=== PATIENT | female | born 1955 | race Caucasian/White ===

== ENCOUNTER 2016-12-11 19:22 | Emergency (ER) | payer OTHER ==
[~2016-12-11] VITALS: Ht 160 cm; Wt 53.0 kg
[2016-12-11 19:33] VITALS: BP 128/84; PULSE 92; RESP 20; TEMP 97.7; O2SAT 98
--- NOTE | 2016-12-11 19:49 | PD ---
HPI Chief Complaint: Headache Time Seen by Provider: 19:38 Travel History International Travel<30 days: No Contact w/Intl Traveler<30days: No Traveled to known affect area: No History of Present Illness HPI 61yo F with PMH of CVA and residual left sided weakness/numbness and right eye visual defect presents to the ED with c/o headache that started about an hour ago. States her head felt "funny" and she fell onto the couch. Headache is located in mid forehead and mild. Denies any new weakness or numbness, fever, neck pain, new visual changes, n/v, abdominal pain. Pt has +AOB but states she only had 2 beers today. PFSH Past Medical History Cancer: Yes High Cholesterol: Yes COPD: Yes Coronary Artery Disease: Yes Diminished Hearing: No Glaucoma: Yes Tetanus Vaccination: Unknown ?: Not Tubal Ligation: Yes Past Surgical History Cholecystectomy: Yes Mastectomy: Yes (left breast) Other Surgery: Yes (back surgery) Social History Alcohol Use: Yes Tobacco Use: Yes Substance Use: No Allergies-Medications (Allergen,Severity, Reaction): Coded Allergies: Codeine (Verified Allergy, Unknown, 12/11/16) Reported Meds & Prescriptions Reported Meds & Active Scripts Active Reported Multi Vitamin Daily (Multiple Vitamin) 1 Tab Tab 1 Tab PO DAILY Folic Acid 800 Mcg Tab 800 Mcg PO DAILY Plavix (Clopidogrel Bisulfate) 75 Mg Tab 75 Mg PO DAILY Atorvastatin (Atorvastatin Calcium) 40 Mg Tab 40 Mg PO HS Aspirin 81 Mg Chew 81 Mg CHEW DAILY Review of Systems Except as stated in HPI: all other systems reviewed are Neg Physical Exam Narrative GENERAL: 61yo F not in distress. SKIN: Focused skin assessment warm/dry. HEAD: Atraumatic. Normocephalic. EYES: Pupils equal and round at 4mm bilaterally. No scleral icterus. No injection or drainage. ENT: No nasal bleeding or discharge. Mucous membranes pink and moist. NECK: Trachea midline. No JVD. No nuchal rigidity. CARDIOVASCULAR: Regular rate and rhythm. No murmur appreciated. RESPIRATORY: No accessory muscle use. Clear to auscultation. Breath sounds equal bilaterally. GASTROINTESTINAL: Abdomen soft, non-tender, nondistended. MUSCULOSKELETAL: No obvious deformities. No clubbing. No cyanosis. No edema. NEUROLOGICAL: Awake and alert. Left upper and lower extremity muscle strength is 4/5 compared to 5/5 in right side which is not new. Left face, arm and leg also has more decreased sensation than right. Left facial droop which is not new. PSYCHIATRIC: Appropriate mood and affect; insight and judgment normal. Data Data Last Documented VS Vital Signs Date Time Temp Pulse Resp B/P Pulse Ox O2 Delivery O2 Flow Rate FiO2 12/11/16 19:36 20 Room Air 100 12/11/16 19:33 97.7 92 128/[address] Brain W/O Iv Contrast(Rout) (12/11/16 ) Complete Blood Count With Diff (12/11/16 19:38) Basic Metabolic Panel (Bmp) (12/11/16 19:38) Prothrombin Time / Inr (Pt) (12/11/16 19:38) Act Partial Throm Time (Ptt) (12/11/16 19:38) Alcohol (Ethanol) (12/11/16 19:56) Labs Laboratory Tests Test 12/11/16 19:50 White Blood Count 7.2 TH/MM3 Red Blood Count 4.21 MIL/MM3 Hemoglobin 14.0 GM/DL Hematocrit 41.5 % Mean Corpuscular Volume 98.4 FL Mean Corpuscular Hemoglobin 33.1 PG Mean Corpuscular Hemoglobin 33.7 % Concent Red Cell Distribution Width 13.7 % Platelet Count 256 TH/MM3 Mean Platelet Volume 8.1 FL Neutrophils (%) (Auto) 44.9 % Lymphocytes (%) (Auto) 45.4 % Monocytes (%) (Auto) 7.9 % Eosinophils (%) (Auto) 1.4 % Basophils (%) (Auto) 0.4 % Neutrophils # (Auto) 3.2 TH/MM3 Lymphocytes # (Auto) 3.3 TH/MM3 Monocytes # (Auto) 0.6 TH/MM3 Eosinophils # (Auto) 0.1 TH/MM3 Basophils # (Auto) 0.0 TH/MM3 CBC Comment DIFF FINAL Differential Comment Prothrombin Time 11.6 SEC Prothromb Time International 1.0 RATIO Ratio Activated Partial 28.2 SEC Thromboplast Time Sodium Level 137 MEQ/L Potassium Level 3.7 MEQ/L Chloride Level 108 MEQ/L Carbon Dioxide Level 20.5 MEQ/L Anion Gap 9 MEQ/L Blood Urea Nitrogen 4 MG/DL Creatinine 0.57 MG/DL Estimat Glomerular Filtration 108 ML/MIN Rate Random Glucose 98 MG/DL Calcium Level 7.5 MG/DL Ethyl Alcohol Level 223 MG/DL [facility] Medical Decision Making Medical Screen Exam Complete: Yes Emergency Medical Condition: Yes Differential Diagnosis SAH vs. Migraine headache vs. alcohol intoxication Narrative Course 61yo F with PMH of CVA and left sided weakness and numbness here with c/o headache that started an hour prior to arrival. Pt is not in distress and non toxic appearing. No signs of trauma. No new neurologic deficits. Since onset of headache is only an hour, CT brain is 100% sensitive for SAH although clinical suspicion for this is low. CT brain showed remote parietal infarct. No acute intracranial abnormalities. Labs reviewed, no leukocytosis. Blood alcohol 223. Pt reevaluated at bedside and states her headache has resolved and she does not want any pain medication at this time and just wants to go home. Pt's son is with her and can accompany her home. Diagnosis Primary Impression: Headache Qualified Code: R51 - Acute nonintractable headache, unspecified headache type Patient Instructions: General Instructions Departure Forms: Tests/Procedures Additional Instructions: Please follow up with your PMD in 3-7 days. Return to the ED if symptoms worsen. Med/Other Pt SpecificInfo: Prescription(s) given Scripts Acetaminophen (Tylenol)325 Mg Wab405 Mg PO Q6H PRN (PAIN SCALE 1 TO 4) #20 TAB Ref 0 Prov:Yael Velasco DO 12/11/16 Disposition: 01 DISCHARGE HOME Condition: Stable Yael Velasco DO Dec 11, 2016 19:49
[2016-12-11] MEDS ORDERED: FOLI800T PO (20:01)
[2016-12-11] MEDS ORDERED: ATOR40TA16 PO (20:01)
[2016-12-11] MEDS ORDERED: MULT1TAB46 PO (20:01)
[2016-12-11] MEDS ORDERED: PANT40TA3 PO (20:01)
[2016-12-11] MEDS ORDERED: ASPI81CH CHEW (20:01)
[2016-12-11] MEDS ORDERED: PLAV75TA29 PO (20:01)
--- NOTE | 2016-12-11 20:23 | RADRPT ---
EXAM DATE/TIME: 12/11/2016 20:11 [facility] COMPARISON: No previous studies available for comparison. INDICATIONS : Trauma, dizziness with fall. ETOH. RADIATION DOSE: 56.35 CTDIvol (mGy) MEDICAL HISTORY : Chronic obstructive pulmonary disease. Coronary artery disease. Breast cancer. SURGICAL HISTORY : Cholecystectomy. Tubal ligation.Mastectomy, left.Back surgery. ENCOUNTER: Initial ACUITY: 1 day PAIN SCALE: 0/10 LOCATION: cranial TECHNIQUE: Multiple contiguous axial images were obtained of the head. Using automated exposure control and adj ustment of the mA and/or kV according to patient size, radiation dose was kept as low as reasonably a chievable to obtain optimal diagnostic quality images. DICOM format image data is available electro nically for review and comparison. FINDINGS: CEREBRUM: Encephalomalacia right parietal lobe from previous infarction. The ventricles are normal for age. No evidence of midline shift, mass lesion, hemorrhage or acute infarction. No extra-axial fluid collec tions are seen. POSTERIOR FOSSA: The cerebellum and brainstem are intact. The 4th ventricle is midline. The cerebellopontine angle i s unremarkable. EXTRACRANIAL: The visualized portion of the orbits is intact. SKULL: The calvaria is intact. No evidence of skull fracture. CONCLUSION: 1. Remote right parietal infarct. 2. No acute intracranial abnormalities. Ricardo Rodriguez MD on December 11, 2016 at 20:20 Board Certified Radiologist. This report was verified electronically.
[2016-12-11 20:28] LABS: AUTOMATED NEUTROPHIL # 3.2 TH/MM3 (1.8-7.7); BASOPHIL % 0.4 % (0.0-2.0); EOSINOPHIL # 0.1 TH/MM3 (0-0.4); EOSINOPHIL % 1.4 % (0.0-4.0); HEMATOCRIT 41.5 % (35.0-46.0); HEMO FLAGS DIFF FINAL; LYMPH % 45.4 % (9.0-44.0); LYMPHOCYTE # 3.3 TH/MM3 (1.0-4.8); MEAN CELL VOLUME 98.4 FL (80.0-100.0); MEAN CORPUSCULAR HEMOGLOBIN 33.1 PG (27.0-34.0); MEAN CORPUSCULAR HGB CONC 33.7 % (32.0-36.0); MONO % 7.9 % (0.0-8.0); NEUT % 44.9 % (16.0-70.0); PLATELET COUNT 256 TH/MM3 (150-450); RED BLOOD COUNT 4.21 MIL/MM3 (4.00-5.30); RED CELL DISTRIBUTION WIDTH 13.7 % (11.6-17.2); WHITE BLOOD COUNT 7.2 TH/MM3 (4.0-11.0)
[2016-12-11 20:37] LABS: APTT (PATIENT) 28.2 SEC (24.3-30.1); PROTHROMBIN TIME - PATIENT 11.6 SEC (9.8-11.6)
[2016-12-11 20:52] LABS: BICARBONATE 20.5 MEQ/L (21.0-32.0)
[2016-12-11 21:07] LABS: POTASSIUM 3.7 MEQ/L (3.5-5.1)
[2016-12-11] MEDS ORDERED: TYLE325T PO (21:45)
== END 2016-12-11 22:02 | disposition home or self-care (01) ==
LOC: NEPE 19:22
DX: R51 Headache (principal); R20.0 Anesthesia of skin; I69.354 Hemiplegia and hemiparesis following cerebral infarction affecting left non-dominant side; I25.10 Atherosclerotic heart disease of native coronary artery without angina pectoris; Z72.0 Tobacco use; Z79.899 Other long term (current) drug therapy
CPT/HCPCS: 70450; 80048; 80307; 85025; 85610; 85730

== ENCOUNTER 2017-08-09 20:41 | Emergency (ER) | payer OTHER ==
[~2017-08-09] VITALS: Ht 157.5 cm; Wt 58.0 kg
[~2017-08-09 20:41] MED LIST: ASPI-516 CHEW; ATOR40TA16 PO; FOLI800T PO; MULT1TAB46 PO; PANT40TA3 PO; PLAV75TA29 PO; TYLE325T PO
[2017-08-09 21:02] VITALS: BP 163/91; PULSE 94; RESP 16; TEMP 97.8; O2SAT 95
[2017-08-09 22:13] VITALS: BP_SYST 164; BP_DIAS 131; BP_DIAS 91; PULSE 97; RESP 18; O2SAT 97
[2017-08-09] MEDS ORDERED: ONDANSETRON HCL 4 MG/2 ML VIAL IV PUSH ONE (22:15)
[2017-08-09] MEDS ORDERED: SODIUM CHLOR 0.9% 1000 ML INJ 1,000 ML IV ONE (22:15)
[2017-08-09] MEDS ORDERED: MORPHINE SULFATE 2 MG/ML INJ IV PUSH ONE (22:15)
--- NOTE | 2017-08-09 22:22 | PD ---
HPI Chief Complaint: Headache Time Seen by Provider: 22:11 Travel History International Travel<30 days: No Contact w/Intl Traveler<30days: No Traveled to known affect area: No History of Present Illness HPI 62-year-old female that presents to the ED for evaluation of headache. Patient came here by was for evaluation of this. Per patient she's had a history of TIAs and CVAs in the past and last one she had left her weak and with numbness to the left arm and leg. This is chronic for her. Per patient's his 5:00 she' s been having a headache and nausea and vomiting. She states that the headache feels like a sharp pain on the forehead. No injury or trauma. Takes no blood thinners. She states that she's been throwing up because of the pain. Denies any chest pain or shortness of breath. She states that she has not taken anything for this. Per patient the pain is not improving which is what prompted her to call the ambulance. She denies any blurry vision or double vision but states that she did have initially. Per patient the pain is 8 out of 10. She also tells me that she drank 6 "small" beers. Has moderate to codeine. Other medical issues at this time. Se does have chronic neck and back problems. PFSH Past Medical History Cancer: Yes High Cholesterol: Yes COPD: Yes Coronary Artery Disease: Yes Diminished Hearing: No Glaucoma: Yes Tubal Ligation: Yes Past Surgical History Cholecystectomy: Yes Mastectomy: Yes (left breast) Other Surgery: Yes (back surgery) Social History Alcohol Use: Yes Tobacco Use: Yes Substance Use: No Allergies-Medications (Allergen,Severity, Reaction): Coded Allergies: codeine (Unverified Allergy, Unknown, 08/09/17) Reported Meds & Prescriptions Reported Meds & Active Scripts Active Reported Multi Vitamin Daily (Multiple Vitamin) 1 Tab Tab 1 Tab PO DAILY Aspirin 81 Mg Chew 81 Mg CHEW DAILY Review of Systems Except as stated in HPI: all other systems reviewed are Neg Physical Exam Narrative GENERAL: SKIN: Warm and dry. HEAD: Atraumatic. Normocephalic. EYES: Pupils equal and round 4 mms reactive to light and accommodation. No scleral icterus. No injection or drainage. ENT: No nasal bleeding or discharge. Mucous membranes pink and moist. Tongue is midline. No uvula deviation. NECK: Trachea midline. No JVD. CARDIOVASCULAR: Regular rate and rhythm. No murmurs, S3, S4. RESPIRATORY: No accessory muscle use. Clear to auscultation. Breath sounds equal bilaterally. GASTROINTESTINAL: Abdomen soft, non-tender, nondistended. Hepatic and splenic margins not palpable. MUSCULOSKELETAL: Extremities without clubbing, cyanosis, or edema. No obvious deformities. Full range of motion of the upper and lower extremity bilaterally. 2+ pulses bilaterally. No lumbar, thoracic, cervical spine tenderness to palpation. NEUROLOGICAL: Awake and alert. No obvious cranial nerve deficits. Motor grossly within normal limits. Five out of 5 muscle strength in the arms and legs. Normal speech. PSYCHIATRIC: Appropriate mood and affect; insight and judgment normal. Data Data Last Documented VS Vital Signs Date Time Temp Pulse Resp B/P (MAP) Pulse Ox O2 Delivery O2 Flow Rate FiO2 08/09/17 22:13 97 18 164/91 (115) 97 Room Air 08/09/17 21:02 97.8 Orders Orders Complete Blood Count With Diff (08/09/17 22:15) Comprehensive Metabolic Panel (08/09/17 22:15) Prothrombin Time / Inr (Pt) (08/09/17 22:15) Act Partial Throm Time (Ptt) (08/09/17 22:15) Lipase (08/09/17 22:15) Magnesium (Mg) (08/09/17 22:15) Ct Brain W/O Iv Contrast(Rout) (08/09/17 22:15) Iv Access Insert/Monitor (08/09/17 22:15) Ecg Monitoring (08/09/17 22:15) Alcohol (Ethanol) (08/09/17 22:15) Ondansetron Inj (Zofran Inj) (08/09/17 22:15) Morphine Inj (Morphine Inj) (08/09/17 22:15) Sodium Chlor 0.9% 1000 Ml Inj (Ns 1000 M (08/09/17 22:15) MDM Medical Decision Making Medical Screen Exam Complete: Yes Emergency Medical Condition: Yes Medical Record Reviewed: Yes Differential Diagnosis Tension headache versus cephalgia versus chronic headache versus dehydration versus normal exam versus CVA Narrative Course 62-year-old female that presents to the ED for evaluation of headache. Patient was properly examined and was found to have signs and symptoms consistent appears to be headache. She is neurovascularly intact at this time. Unclear as to the reason of the headache but will do CT and labs. Patient does admit to alcohol and has been throwing up. Possible migraine. Labs and imaging ordered. Patient was started on IV fluids and IV medications. Case will be signed out to my attending pending disposition and plan. Mac Montes Aug 09, 2017 22:22
[2017-08-09 22:38] LABS: AUTOMATED NEUTROPHIL # 7.1 TH/MM3 (1.8-7.7); BASOPHIL # 0.1 TH/MM3 (0-0.2); BASOPHIL % 0.5 % (0.0-2.0); EOSINOPHIL # 0.1 TH/MM3 (0-0.4); EOSINOPHIL % 0.8 % (0.0-4.0); HEMATOCRIT 52.1 % (35.0-46.0); HEMOGLOBIN 17.9 GM/DL (11.6-15.3); LYMPHOCYTE # 2.2 TH/MM3 (1.0-4.8); MEAN CELL VOLUME 99.1 FL (80.0-100.0); MEAN CORPUSCULAR HEMOGLOBIN 34.1 PG (27.0-34.0); MEAN CORPUSCULAR HGB CONC 34.4 % (32.0-36.0); MEAN PLATELET VOLUME 7.7 FL (7.0-11.0); MONO % 5.3 % (0.0-8.0); MONOCYTE # 0.5 TH/MM3 (0-0.9); NEUT % 71.4 % (16.0-70.0); PLATELET COUNT 256 TH/MM3 (150-450); RED BLOOD COUNT 5.25 MIL/MM3 (4.00-5.30); RED CELL DISTRIBUTION WIDTH 12.4 % (11.6-17.2); WHITE BLOOD COUNT 9.9 TH/MM3 (4.0-11.0)
[2017-08-09 22:47] LABS: INTERNATIONAL NORMALIZED RATIO 1.1 RATIO; PROTHROMBIN TIME - PATIENT 11.2 SEC (9.8-11.6)
--- NOTE | 2017-08-09 22:58 | RADRPT ---
EXAM DATE/TIME: 08/09/2017 22:31 [facility] COMPARISON: No previous studies available for comparison. INDICATIONS : Patient complains of headache. RADIATION DOSE: 33.37 CTDIvol (mGy) MEDICAL HISTORY : Cerebrovascular disease. Chronic obstructive pulmonary disease. Cardiovascular disease SURGICAL HISTORY : Mastectomy, left. Cholecystectomy. ENCOUNTER: Initial ACUITY: 1 day PAIN SCALE: 5/10 LOCATION: cranial TECHNIQUE: Multiple contiguous axial images were obtained of the head. Using automated exposure control and adj ustment of the mA and/or kV according to patient size, radiation dose was kept as low as reasonably a chievable to obtain optimal diagnostic quality images. DICOM format image data is available electro nically for review and comparison. FINDINGS: There is a remote right MCA distribution infarct similar to November 2016. No mass effect or midline shif t. Undersurface. No abnormal extra-axial fluid collections. No acute bony abnormalities. Mucosal thic kening right ethmoid air cells. CONCLUSION: 1. Remote right MCA distribution infarct. No acute intracranial abnormalities. Mikhail Tinajero MD on August 09, 2017 at 22:54 Board Certified Radiologist. This report was verified electronically.
[2017-08-09 22:59] LABS: ALT (GPT) 19 U/L (10-53)
[2017-08-09 23:01] LABS: ALKALINE PHOSPHATASE 98 U/L (45-117); TOTAL BILIRUBIN ADULT 0.5 MG/DL (0.2-1.0); TOTAL PROTEIN 7.7 GM/DL (6.4-8.2)
[2017-08-09 23:15] LABS: ALBUMIN 3.8 GM/DL (3.4-5.0); AST (GOT) 17 U/L (15-37); BICARBONATE 23.7 MEQ/L (21.0-32.0); BLOOD UREA NITROGEN 4 MG/DL (7-18); CHLORIDE 102 MEQ/L (98-107); CREATININE 0.68 MG/DL (0.50-1.00); GLOMERULAR FILTRATION RATE 88 ML/MIN (>89); GLUCOSE,RANDOM 88 MG/DL (74-106); MAGNESIUM 1.9 MG/DL (1.5-2.5); SODIUM (NA) 137 MEQ/L (136-145)
[2017-08-09] MEDS ORDERED: THIAMINE INJ 100 MG in SODIUM CHLORIDE 0.9% INJ 100 ML IV ONE (23:45)
[2017-08-09 23:46] VITALS: BP 110/68; PULSE 90; RESP 15; O2SAT 91
--- NOTE | 2017-08-10 00:14 | PD ---
Physical Exam Narrative General: The patient is a well-developed well-nourished female in no acute distress. Head and Neck exam: Head is normocephalic atraumatic. Eyes: EOMI, pupils are equal round and reactive to light. Nose: Midline septum with pink mucous membranes Mouth: Dentition unremarkable. Moist mucus membranes. Posterior oropharynx is not erythematous. No tonsillar hypertrophy. Uvula midline. Airway patent. Neck: No palpable lymphadenopathy. No nuchal rigidity. No thyromegaly. Negative Brudzinski, negative Kernig sign. Cardiovascular: Regular rate and rhythm without murmurs, gallops, or rubs. Lungs: Clear to auscultation bilaterally. No wheezes, rhonchi, or rales. Abdomen: Soft, without tenderness to palpation in all 4 quadrants of the abdomen. No guarding, rebound, or rigidity. Normal bowel sounds are audible. No tenderness on palpation of McBurney's point. Extremities: No clubbing, cyanosis, or edema. Neurologic Exam: Grossly nonfocal. Skin Exam: No rash noted. Intact skin that is warm and dry. Data Data Last Documented VS Vital Signs Date Time Temp Pulse Resp B/P (MAP) Pulse Ox O2 Delivery O2 Flow Rate FiO2 08/09/17 23:46 90 15 110/68 (82) 91 08/09/17 22:13 Room Air 08/09/17 21:02 97.8 Orders Orders Complete Blood Count With Diff (08/09/17 22:15) Comprehensive Metabolic Panel (08/09/17 22:15) Prothrombin Time / Inr (Pt) (08/09/17 22:15) Act Partial Throm Time (Ptt) (08/09/17 22:15) Lipase (08/09/17 22:15) Magnesium (Mg) (08/09/17 22:15) Ct Brain W/O Iv Contrast(Rout) (08/09/17 22:15) Iv Access Insert/Monitor (08/09/17 22:15) Ecg Monitoring (08/09/17 22:15) Alcohol (Ethanol) (08/09/17 22:15) Ondansetron Inj (Zofran Inj) (08/09/17 22:15) Morphine Inj (Morphine Inj) (08/09/17 22:15) Sodium Chlor 0.9% 1000 Ml Inj (Ns 1000 M (08/09/17 22:15) Thiamine Inj (Thiamine Inj) (08/09/17 23:45) Chest, Single Ap (08/10/17 00:07) Albuterol-Ipratropium Neb (Duoneb Neb) (08/10/17 00:15) Labs Laboratory Tests Test 08/09/17 22:15 White Blood Count 9.9 TH/MM3 Red Blood Count 5.25 MIL/MM3 Hemoglobin 17.9 GM/DL Hematocrit 52.1 % Mean Corpuscular Volume 99.1 FL Mean Corpuscular Hemoglobin 34.1 PG Mean Corpuscular Hemoglobin Concent 34.4 % Red Cell Distribution Width 12.4 % Platelet Count 256 TH/MM3 Mean Platelet Volume 7.7 FL Neutrophils (%) (Auto) 71.4 % Lymphocytes (%) (Auto) 22.0 % Monocytes (%) (Auto) 5.3 % Eosinophils (%) (Auto) 0.8 % Basophils (%) (Auto) 0.5 % Neutrophils # (Auto) 7.1 TH/MM3 Lymphocytes # (Auto) 2.2 TH/MM3 Monocytes # (Auto) 0.5 TH/MM3 Eosinophils # (Auto) 0.1 TH/MM3 Basophils # (Auto) 0.1 TH/MM3 CBC Comment DIFF FINAL Differential Comment Prothrombin Time 11.2 SEC Prothromb Time International Ratio 1.1 RATIO Activated Partial Thromboplast Time 27.0 SEC Blood Urea Nitrogen 4 MG/DL Creatinine 0.68 MG/DL Random Glucose 88 MG/DL Total Protein 7.7 GM/DL Albumin 3.8 GM/DL Calcium Level 9.0 MG/DL Magnesium Level 1.9 MG/DL Alkaline Phosphatase 98 U/L Aspartate Amino Transf (AST/SGOT) 17 U/L Alanine Aminotransferase (ALT/SGPT) 19 U/L Total Bilirubin 0.5 MG/DL Sodium Level 137 MEQ/L Potassium Level 4.1 MEQ/L Chloride Level 102 MEQ/L Carbon Dioxide Level 23.7 MEQ/L Anion Gap 11 MEQ/L Estimat Glomerular Filtration Rate 88 ML/MIN Lipase 135 U/L Ethyl Alcohol Level 143 MG/DL [facility] Medical Record Reviewed: Yes Supervised Visit with ZAKI: Yes Interpretation(s) Last Impressions Head CT 08/09/17 1781 Signed Impressions: Service Date/Time: Wednesday, August 09, 2017 22:31 - CONCLUSION: 1. Remote right MCA distribution infarct. No acute intracranial abnormalities. Mikhail Tinajero MD Vital Signs Date Time Temp Pulse Resp B/P (MAP) Pulse Ox O2 Delivery O2 Flow Rate FiO2 08/09/17 23:46 90 15 110/68 (82) 91 08/09/17 22:13 97 18 164/91 (115) 97 Room Air 08/09/17 21:02 97.8 94 16 163/91 (115) 95 Narrative Course During the course of the patient's emergency department visit, the patient's history, examination, and differential diagnosis were reviewed with the patient. The patient was placed on a monitoring manager with oximetry and frequent blood pressure monitoring. The patient had IV access obtained and blood work sent for analysis. The patient was seen initially by Mac, the physician assistant production editor. Please see his complete history and physical. The patient's case was checked out to me at the conclusion of his chest. The patient presented with a headache. The patient has a history of cerebrovascular accident, with residual weakness of her left side, however she denies having any new neurologic symptoms other than the headache. She reports that she does take a low-dose aspirin daily and did take it today. The patient was initially provided normal saline a 1 L IV fluid bolus, morphine 4 mg IV, Zofran 4 mg IV, thiamine 100 mg IV. The patient's laboratory studies were reviewed and remarkable for a white count of 9.9, hemoglobin 17.9, platelets 256 with 71.4 neutrophils. CMP is remarkable for BUN of 4, GFR of 88, lipase 135. PT 11.2, PTT 27, alcohol level 143. Radiology studies were reviewed and remarkable for a CT scan of the brain that shows a remote right MCA distribution infarct, no other acute abnormality. The patient began to rest comfortably and on reexamination was sleeping. The patient's O2 saturation dropped down to 91%. The patient reports that her headache has improved and she is now drowsy. The patient reports that she has a ride home available. A chest x-ray was ordered because of the patient's desaturation, however I suspect that this is related to her smoking history and sedation from pain reliever. The patient will be observed for longer while the chest x-ray is completed. A DuoNeb was administered 1. The patient's chest x- ray showed no evidence of cardiopulmonary disease. The patient is encouraged to quit smoking. The patient is encouraged to avoid heavy alcohol intake. The patient reports that she has been under increased stress related to her home situation, living with her son and his girlfriend. I suspect that the patient's headache is related to a tension headache. The patient is resting comfortably and feels better, is alert and in no distress. The patient's results and examination findings were discussed with the patient. The repeat examination is unremarkable and benign. The history, exam, diagnostic testing, and current condition do not suggest any significant pathology to warrant further testing, continued ED treatment, admission, or surgical evaluation at this point. The vital signs have been stable. The patient does not have uncontrollable pain, intractable vomiting, or other significant symptoms. The patient's condition is stable and appropriate for discharge. The patient will pursue further outpatient evaluation with a primary care physician or other designated or consulting physician as indicated in the discharge instructions. The patient expressed understanding and was agreeable with this plan. Diagnosis Primary Impression: Headache Qualified Codes: G44.209 - Tension-type headache, unspecified, not intractable Referrals: Primary Care Physician 2 days Patient Instructions: General Instructions, Tension Headache (ED) Med/Other Pt SpecificInfo: No Change to Meds Disposition: 01 DISCHARGE HOME Condition: Stable Teresa Wright MD Aug 10, 2017 00:14
[2017-08-10] MEDS ORDERED: RESP: ALBUTEROL 2.5 MG/IPRATROPIUM 0.5 MG NEB (SCH) NEB ONE (00:15)
--- NOTE | 2017-08-10 00:27 | RADRPT ---
EXAM DATE/TIME: 08/10/2017 00:16 [facility] COMPARISON: No previous studies available for comparison. INDICATIONS : Shortness of breath. MEDICAL HISTORY : Chronic obstructive pulmonary disease. Carcinoma, breast. SURGICAL HISTORY : Mastectomy, left. ENCOUNTER: Initial ACUITY: 1 day PAIN SCORE: 0/10 LOCATION: Bilateral chest FINDINGS: A single view of the chest demonstrates the lungs to be symmetrically aerated without evidence of mas s, infiltrate or effusion. The cardiomediastinal contours are unremarkable. Osseous structures are intact. Multiple cardiac leads project over the chest. CONCLUSION: The lungs are clear. Shayan Deluca MD on August 10, 2017 at 0:25 Board Certified Radiologist. This report was verified electronically.
[2017-08-10 01:07] VITALS: O2SAT 96
== END 2017-08-10 01:39 | disposition home or self-care (01) ==
LOC: NEPE 20:41
DX: G44.209 Tension-type headache, unspecified, not intractable (principal); R11.2 Nausea with vomiting, unspecified; Z72.0 Tobacco use; Z79.82 Long term (current) use of aspirin
CPT/HCPCS: 70450; 71045; 80053; 80307; 83690; 83735; 85025; 85610; 85730; 94664; 96361; 96374; 96375; 99285; J2270; J2405; J3411; J7030